=== PATIENT | female | born 1985 | race Caucasian/White ===

== ENCOUNTER 2020-07-30 17:32 | Emergency (ER) | payer OTHER, SELFPAY ==
[2020-07-30 17:41] VITALS: BP 130/73; PULSE 109; RESP 16; TEMP 36.4; O2SAT 98; BMI 36.3
--- NOTE | 2020-07-30 17:59 | ED_ITS ---
HPI - Neuro Symptoms/Deficit General Chief Complaint: Neuro Symptoms/Deficit Stated Complaint: FACIAL NUMBNESS Source: patient Mode of arrival: ambulatory Limitations: no limitations History of Present Illness HPI Narrative: 35-year-old female presents with no significant past medical history with right-sided facial numbness and weakness. States that she noted this morning her face looked droopy on the right side and that her mouth would not raise when she was smiling. She does not complain of any chest pain or pressure, palpitations, weakness, numbness, tingling, loss of balance, decreased sensation, or any other concerning symptoms at this time. She does not report traveling outside of the country, does not have any sick contacts, and has not had any exposure to varicella or shingles. Onset (ago): hour(s) Location: right face History of same: No Severity: mild Quality: weak Relieving factors: none Exacerbating factors: none Context: sudden onset On Anticoagulants: No Associated symptoms: denies other symptoms Treatments Prior to Arrival: none Related Data Previous Rx's Medication Instructions Recorded prednisone 60 mg PO DAILY 7 Days #21 tab 07/30/20 valacyclovir 1,000 mg PO TID 7 Days #21 tab 07/30/20 Allergies Allergy/AdvReac Type Severity Reaction Status Date / Time aspirin [ASA] Allergy Severe ANAPHYLAXIS Verified 07/30/20 17:49 Review of Systems Review of Systems: Constitutional: No Fever, No Chills ENT/Mouth: No Ear Pain, No Hoarseness, No sore throat Eyes: No Eye Pain, No Swelling, No Redness, No Foreign Body Cardiovascular: No Chest Pain, No SOB Respiratory: No Cough, No Dyspnea Gastrointestinal: No Nausea, No Vomiting, No Diarrhea, No abdominal Pain Genitourinary: No Dysuria, No Hematuria Musculoskeletal: no joint pain, No Myalgias, No Joint Swelling Skin: No Skin lacerations, No rash Neuro: right-sided facial numbness and drooping, No Weakness, No Paresthesias, No Loss of Consciousness, No Dizziness, No Headache Psych: No Anxiety/Panic, No Depression Heme/Lymph: no easy bruising, no Lymphadenopathy Endocrine: No Polyuria, No Polydipsia Yes all other systems are reviewed and are negative [facility] Past Medical History Attestation statement: The following information was validated with the patient. Medical History No known health problems Social History Social History Alcohol intake: never Smoked in Last 30 Days: No Use of substances other than those prescribed or required for medical reasons: No Advance Directives: No Advance Directives Information Provided: Yes Physical Exam Vital Signs: Vital Signs: Last Vital Signs Temp 97.5 F 07/30/20 17:41 Pulse 109 H 07/30/20 17:41 Resp 16 07/30/20 17:41 BP 130/73 07/30/20 17:41 Pulse Ox 98 07/30/20 17:41 Body Mass Index 36.3 Appearance: Alert. Oriented X3. No acute distress. Right eyebrow sagging, positive disappearance of the nasolabial fold, and drooping at the affected corner of the mouth Eyes: Pupils equal, round and reactive to light. ENT: Pharynx normal. Neck: Normal inspection. Neck supple. CVS: Normal heart rate and rhythm. Pulses normal. Respiratory: No respiratory distress. Breath sounds normal. Abdomen: Soft and nontender. Skin: Skin warm and dry. Normal skin color. Normal skin turgor. Extremities: No lower extremity edema. Neuro: No motor deficit. No sensory deficit. Course Course Course Narrative: 35-year-old female presents with suspected Christianson's palsy, based on clinical presentation with Common findings of right eyebrow sagging, forehead does not wrinkle upon frowning or when attempting to raise the eyebrows and disappearance of the nasolabial fold, with drooping at the affected corner of the mouth. she is not , does not take any hormones, and does not have cancer. Heart rate at bedside is 78, NIH stroke scale is 0, we will treat with prednisone and Antiviral. Patient does understand that she must follow-up with primary care provider for further workup. language interpreter utilized for all correspondence. Google translate utilized for discharge instructions. Patient verbalized understanding of and agrees to plan of care to discharge home. MDM - Neuro Symptoms/Deficit MDM Narrative Medical decision making narrative: Christianson's palsy NIH Stroke Scale Internal: Initial- Upon Arrival Level of Consciousness: Alert Level of Consciousness Questions: Answers both questions correctly Level of Consciousness Commands: Performs both tasks correctly Best Gaze: Normal Visual: No visual loss Facial Palsy: Normal Motor Arm (Right): No drift Motor Arm (Left): No drift Motor Leg (Right): No drift Motor Leg (Left): No drift Limb Ataxia: Absent Sensory: Normal Best Language: No aphasia Dysarthia: Normal Extinction and Inattention: No abnormality Score: 0 Discharge Plan Discharge Clinical Impression: Christianson's palsy Patient Disposition: Home, Self-Care Instructions: Christianson Palsy (ED) Additional Instructions: se le evalu? para la par?lisis facial. Esta es la par?lisis de Christianson. Por favor, tome el medicamento prednisona jose se indica. [place] valacyclovir 3 veces al d?a debbie los pr?ximos 7 d?as. Debe hacer un seguimiento con chaparro m?dico de atenci?n primaria m?s adelante esta semana. Lucita por elegir reyna departamento de emergencias para la evaluaci?n. Por f avor, nate un seguimiento con el m?dico de atenci?n primaria seg?n sea necesario. Regrese al servicio de urgencias para cualquier s?ntoma nuevo, preocupante o que empeore. you were evaluated for facial paralysis. This is Christianson's palsy. Please take the medication prednisone as directed. Take valacyclovir 3 times a day for the next 7 days. You must follow-up with your primary care physician later this week. Thank you for choosing this emergency department for evaluation. Please follow-up with primary care physician as needed. Return to the emergency department for any new, concerning, or worsening symptoms. Prescriptions: New prednisone 20 mg tablet 60 mg PO DAILY 7 Days Qty: 21 RF: 0 valacyclovir 1 gram tablet 1,000 mg PO TID 7 Days Qty: 21 RF: 0 Interventions: ED Discharge Assessment Last Done: 07/30/20 18:25 Discharge Date/Time: 07/30/20 18:26 Print Language: Serbian
--- NOTE | 2020-07-30 18:10 | PC.NURSE ---
Addendum entered by Gisselle Cardoso 07/30/20 18:23: patient a&ox3, rt side facial droop- neuro otherwise intact, no c/o pain or discomfort, swallow intact Original Note: p
[2020-07-30] MEDS: predniSONE 20 MG TABLET 60 MG PO (18:17)
--- NOTE | 2020-07-30 18:24 | PC.NURSE ---
pt medicated per order
== END 2020-07-30 18:26 | disposition home or self-care (01) ==
PROVIDERS: Emergency Provider Emergency Medicine; PCP Family Medicine Geriatric Medicine
DX: G51.0 Bell's palsy (principal); Z79.899 Other long term (current) drug therapy
CPT/HCPCS: 99283; 99284